=== PATIENT | female | born 1930 | race African-American/Black ===

== ENCOUNTER 2017-07-29 12:16 | Observation (INO) ==
[2017-07-29] MEDS ORDERED: ONDANSETRON 4 MG/2 ML VIAL IV PRN (12:38)
[2017-07-29] MEDS ORDERED: DEXTROSE 50% 25 GM/50 ML VIAL IV PRN (12:38)
[2017-07-29] MEDS ORDERED: ACETAMINOPHEN 325 MG TABLET PO PRN (12:38)
[2017-07-29] MEDS ORDERED: GLUCAGON 1 MG VIAL IM PRN (12:38)
[2017-07-29] MEDS ORDERED: ENOXAPARIN 30 MG/0.3 ML SYRINGE SUBCUT SCH (13:30)
[2017-07-29 13:50] LABS: Basophils # 0.1 10*3/uL (0.0-0.2); Basophils % 0.7 % (0.0-0.8); Eosinophils # 0.1 10*3/uL (0.0-0.87); Eosinophils % 0.7 % (0.00-10.9); Hematocrit 43.3 VOL% (35.7-47.0); Hemoglobin 13.3 GM/DL (12.0-16.0); Immature Granulocytes % 0.4 %; Immature Granulocytes Absolute 0.03 #; Lymphocytes # 1.8 10*3/uL (1.4-4.0); Lymphocytes % 24.4 % (21.3-54.2); Mean Corpuscular HGB Conc 30.7 GM/DL (32-36); Mean Corpuscular Hemoglobin 22 PG (27-34); Mean Platelet Volume 10.2 FL (9.6-12.0); Monocytes # 0.7 10*3/uL (0.11-0.8); Monocytes % 8.9 % (1.7-12.7); Neutrophils # 4.8 10*3/uL (1.4-7.4); Neutrophils % 64.9 % (38.7-73.9); Platelet Count 272 T/CUMM (130-400); Red Blood Count 5.93 MC/CUMM (3.8-5.5); Red Cell Distribution Width 16.5 % (9.3-17.3); White Blood Count 7.3 T/CUMM (4-12)
[2017-07-29 14:19] LABS: Albumin 3.8 G/DL (3.4-5.0); Bilirubin,Total 0.6 MG/DL (0.2-1.0); Calcium 9.4 MG/DL (8.5-10.1); Potassium 4.4 MMOL/L (3.5-5.1); Total Protein 7.4 G/DL (6.4-8.3)
[2017-07-29 15:58] LABS: Apearance,Urine CLEAR (Clear); Bilirubin,Urine Negative (Negative); Blood, Urine Negative (Negative); Glucose,Urine (UA) >=500 mg/dL (Negative); Ketones,Urine 5 mg/dL (Negative); Nitrite,Urine Negative (Negative); Protein,Urine Negative; RBC,Urine 3 /HPF (0-4); Squamous Epithelial Cell,Urine Occasional /HPF (0-10); Urine Color Yellow (Yellow); Urine Specific Gravity 1.029 (1.001-1.035); WBC,Urine 2 /HPF (0-6)
[2017-07-29] MEDS: SODIUM CHLORIDE 0.45% 1,000 ML IV SCH (17:23)
[2017-07-29] MEDS: INSULIN LISPRO 100 UNIT/ML SUBCUT SCH ×2 (17:29→22:25)
[2017-07-29] MEDS: CARBIDOPA/LEVODOPA 25-250 MG TABLET PO SCH ×2 (17:29→22:25)
[2017-07-29] MEDS ORDERED: INSULIN GLARGINE 100 UNIT/ML SUBCUT SCH (21:00)
[2017-07-29] MEDS ORDERED: SIMVASTATIN 10 MG TABLET PO SCH (21:00)
[2017-07-29] MEDS: DOCUSATE SODIUM 100 MG CAPSULE PO SCH (22:25)
[2017-07-30 07:12] LABS: Risk Ratio 1.94; VLDL CHOLESTEROL 17.6 MG/DL
[2017-07-30] MEDS ORDERED: LINZESS 72 MG PO SCH (07:30)
[2017-07-30] MEDS: INSULIN LISPRO 100 UNIT/ML SUBCUT SCH ×2 (08:17→11:59)
[2017-07-30] MEDS: CARBIDOPA/LEVODOPA 25-250 MG TABLET PO SCH (08:19)
[2017-07-30] MEDS: DOCUSATE SODIUM 100 MG CAPSULE PO SCH (08:19)
[2017-07-30] MEDS ORDERED: PANTOPRAZOLE 40 MG TABLET PO SCH (09:00)
[2017-07-30] MEDS ORDERED: DILTIAZEM CD 120 MG CAPSULE PO SCH (09:00)
[2017-07-30] MEDS ORDERED: LOSARTAN 50 MG TABLET PO SCH (09:00)
[2017-07-30] MEDS ORDERED: PARoxetine 20 MG TABLET PO SCH (09:00)
[2017-07-30] MEDS: SODIUM CHLORIDE 0.45% 1,000 ML IV SCH (10:30)
[2017-07-30 11:28] VITALS: BP 152/77
== END 2017-07-30 12:59 | disposition home or self-care (01) ==
LOC: N.3E
PROVIDERS: ADMIT Family Medicine; ATTEND Family Medicine